=== PATIENT | female | born 1940 | race Caucasian/White ===

== ENCOUNTER 2024-05-28 18:32 | Outpatient (REF) | payer MEDICARE, MEDICAID, SELFPAY ==
[2024-05-28 19:36] LABS: Abs Immature Grans 0.01 10^3/uL (0.0-0.06); Absolute Basophil Count 0.04 10^3/uL (0.0-0.2); Absolute Eosinophil Count 0.02 10^3/uL (0.0-0.7); Absolute Lymphocyte Count 0.83 10^3/uL (1.2-3.4); Absolute Monocyte Count 0.33 10^3/uL (0.1-0.8); Absolute Neutrophil Count 3.72 10^3/uL (1.2-6.7); Basophils % 0.8 %; Eosinophils % 0.4 %; HCT 30.1 % (36.0-46.0); HGB 9.6 g/dL (11.2-15.7); Immature Grans % 0.2 %; Lymphocytes % 16.8 %; MCH 28.2 pg (27.0-33.0); MCHC 31.9 % (32.0-36.0); MCV 89 fL (80-95); MPV 11.2 fL (8.0-11.0); Monocytes % 6.7 %; Neutrophils % 75.1 %; Platelet Count 193 10^3/uL (130-400); RDW 13.1 % (11.7-14.6); RDW-SD 41.6 fL; WBC 4.95 10^3/uL (4.4-10.8)
[2024-05-28 20:25] LABS: Hemoglobin A1C 5.4 % (<5.7)
[2024-05-28 20:43] LABS: ALT 23 U/L (14-59); AST 18 U/L (15-37); Albumin 3.3 g/dL (3.4-5.0); Alkaline Phosphatase 130 U/L (46-116); Anion Gap 6.6 mmol/L (3-11); BUN 14 mg/dL (7-18); Bilirubin, Total 0.56 mg/dL (0.2-1.0); CO2 29.4 mmol/L (21.0-32.0); CREATININE 0.9 mg/dL (0.55-1.02); Calcium 9.2 mg/dL (8.5-10.1); Chloride 107 mmol/L (98-107); Estimated GFR 62.65 (mL/min/1.73m2); Glucose 149 mg/dL (74-106); Magnesium 2.2 mg/dL (1.8-2.4); Sodium 143 mmol/L (136-145); TSH (W/Ref FT4) 0.45 uIU/mL (0.36-3.74); Total Protein 6.5 g/dL (6.4-8.2); Vitamin B12 618 pg/mL (193-986); Vitamin D 25 Total 19.9 ng/mL (30-100)
[2024-05-28 21:17] LABS: NT-proBNP 784 pg/mL (<300)
[2024-05-28 21:34] LABS: Iron 32 ug/dL (50-170); Total Iron Binding Capacity 230 ug/dL (250-450); Transferrin Sat 14 % (15-50)
[2024-05-29 14:46] LABS: Ferritin 405 ng/mL (8-252)
[2024-06-01 08:45] LABS: FSH 35.5 mIU/mL (See Note)
== END 2024-05-28 18:33 | disposition home or self-care (01) ==
LOC: LBN 18:32
PROVIDERS: PCP Legal Medicine; Visit Provider Nurse Practitioner Gerontology
DX: Z85.3 Personal history of malignant neoplasm of breast (principal); E83.42 Hypomagnesemia; I11.9 Hypertensive heart disease without heart failure; R73.09 Other abnormal glucose; G89.4 Chronic pain syndrome; D52.9 Folate deficiency anemia, unspecified; R53.82 Chronic fatigue, unspecified
CPT/HCPCS: 80053; 82306; 82607; 82728; 82746; 83001; 83036; 83540; 83550; 83735; 83880; 84443; 85025